=== PATIENT | male | born 1980 | race Hispanic/Latino ===

== ENCOUNTER 2020-11-05 07:34 | Day surgery (SDC) | payer OTHER ==
[2020-11-01 11:29] LABS: EOSINOPHILS % (AUTO) 2.7 % (0.0-8.0); HEMATOCRIT 43.5 % (42-54); MEAN CORPUSCULAR HGB CONC 33.1 g/dL (32.0-36.0); MEAN CORPUSCULAR VOLUME 84.5 fL (79-99); MONOCYTES % (AUTO) 6.8 % (3.0-13.0); NEUTROPHILS % (AUTO) 51.1 % (40.0-77.0); PLATELET COUNT (AUTO) 242 K/uL (130-400); RED BLOOD CELL COUNT(AUTO) 5.15 MIL/uL (4.50-6.20); RED CELL DISTRIBUTION WIDTH 13.8 % (11.0-15.5); WHITE BLOOD COUNT (AUTO) 4.8 K/uL (4.8-10.8)
[2020-11-01 11:42] LABS: CREATININE 0.9 mg/dL (0.5-1.5); POTASSIUM 4.1 mmol/L (3.5-5.1)
[2020-11-02 09:23] VITALS: BP 121/81
[2020-11-05] VITALS (16 sets, daily range): BP systolic 109–124; BP diastolic 57–67
[~2020-11-05] VITALS: Ht 167.6 cm; Wt 96.3 kg
[~2020-11-05 07:34] MED LIST: CYCL7.5T27 PO; NAPR-1023 PO
[2020-11-05] MEDS ORDERED: LACTATED RINGERS 1000ML 1,000 ML IV ONE (08:57)
[2020-11-05] MEDS: CEFAZOLIN SODIUM 1 GM VIAL IVP SCH ×2 (09:00→12:17)
[2020-11-05] MEDS ORDERED: LIDOCAINE PF 2% 5ML ABBOJECT ONE (10:25)
[2020-11-05] MEDS ORDERED: SUCCINYLCHOLINE CHLORIDE 20 MG/ML 10 ML VIAL ONE (10:25)
[2020-11-05] MEDS ORDERED: MIDAZOLAM HCL 1 MG/ML 2ML VIAL ONE (10:26)
[2020-11-05] MEDS ORDERED: PROPOFOL 10 MG/ML 20ML VIAL IV ONE (10:26)
[2020-11-05] MEDS ORDERED: ROCURONIUM 10MG/1ML SYR 10 MG/ML ML ONE (10:26)
[2020-11-05] MEDS ORDERED: NEOSTIGMINE 5MG/5ML SYR IV ONE (10:26)
[2020-11-05] MEDS ORDERED: FENTANYL CITRATE PF 50 MCG/1 ML 2ML VIAL ONE (10:26)
[2020-11-05] MEDS ORDERED: GLYCOPYRROLATE 1 MG/5 ML SYRINGE ONE (10:26)
[2020-11-05] MEDS ORDERED: ROPIVACAINE 0.5% 5MG/ML 30ML IJ ONE (10:30)
[2020-11-05] MEDS ORDERED: EPINEPHRINE 1 MG/ML 30ML VIAL IJ ONE (10:35)
[2020-11-05] MEDS ORDERED: DEXAMETHASONE SOD PHOSPHATE 10MG/ML 1ML VIAL ONE (11:59)
[2020-11-05] MEDS ORDERED: EPHEDRINE SULFATE 50 MG/ML AMPULE ONE (12:19)
[2020-11-05] MEDS ORDERED: ONDANSETRON HCL 4 MG/2 ML VIAL ONE (13:12)
[2020-11-05] MEDS ORDERED: CEPH500B PO (13:41)
[2020-11-05] MEDS ORDERED: HYDR-4060 PO (13:41)
== END 2020-11-05 15:20 | disposition home or self-care (01) ==
LOC: DAH 07:34
PROVIDERS: ATTEND Orthopaedic Surgery
DX: M25.811 Other specified joint disorders, right shoulder (principal); Z20.822 Contact with and (suspected) exposure to COVID-19; G89.29 Other chronic pain; M25.511 Pain in right shoulder; M24.811 Other specific joint derangements of right shoulder, not elsewhere classified; G43.109 Migraine with aura, not intractable, without status migrainosus; E78.5 Hyperlipidemia, unspecified; K21.9 Gastro-esophageal reflux disease without esophagitis; G47.30 Sleep apnea, unspecified; Z79.899 Other long term (current) drug therapy; Z98.890 Other specified postprocedural states; Z83.3 Family history of diabetes mellitus; Z82.49 Family history of ischemic heart disease and other diseases of the circulatory system; Z72.9 Problem related to lifestyle, unspecified
CPT/HCPCS: 29824; 29826; 36415; 64415; 76942; 80048; 85025; 87641; A4215; A4221; A4222; A4223; A4565; A4600; A4649 ×3; A4663; A4930; A5120; A6204; C9803; G0168; J0171; J0330; J0690; J1100; J2001; J2250; J2405; J2704; J2710; J2795; J3010; J3490 ×2; J7030; J7120 ×2; U0003